=== PATIENT | female | born 1970 | race American Indian/Alaskan Native ===

== ENCOUNTER 2021-07-08 17:53 | Emergency (ER) | payer MEDICARE ==
[2021-07-08 18:13] VITALS: BP 95/51
--- NOTE | 2021-07-09 01:35 | Emergency Department Report ---
ED Rash HPI - HPI Chief Complaint: Skin Rash Stated Complaint: DEHYDRATED Time Seen by Provider: 07/09/21 00:17 Duration: 5 Days Location: Neck, Back, Abdomen, Upper Extremities Rash Symptoms: Yes Itching Severity: mild, moderate Other History: 50-year-old female is relocated to a rooming house presents emerged department complaining of new onset pruritic rash to her upper body since moving into the location. Reports no fever, chills, sweats. No wheezes. No nausea vomiting ED Review of Systems ROS: Stated complaint: DEHYDRATED Other details as noted in HPI Comment: All other systems reviewed and negative ED Past Medical Hx - Medications Home Medications: Home Medications Medication Instructions Recorded Confirmed Last Taken Type Permethrin 5% [Acticin 5% CREAM] 1 applicatio TP ONCE #1 tube 07/09/21 Unknown Rx Rash Exam - Exam General: Vital signs noted. No distress. Alert and acting appropriately. HEENT: No Periorbital Edema, No Conjuctival Injection, No Chemosis, No Perioral Edema, No Tongue Edema, No Uvular Edema, No Compromised Airway, No Drooling Lungs: Yes Good Air Exchange (Normal Breath Sounds), No Wheezes, No Ronchi, No Stridor, No Cough, No Labored Respirations, No Retractions, No Use of Accessory Muscles, No Other Abnormal Lung Sounds Heart: Yes Regular, No Murmur Skin: Yes Erythema (Mite bites in various areas on the arms torso and neck with local erythema. No lymphangitis.), No Bulla(e), No Excoriations, No Weeping Other: Positive: Abdomen Normal, Neurologic Normal, Musculoskeletal Normal ED Course Vital Signs 07/08/21 18:10 Temperature 98.1 F Pulse Rate 82 Respiratory 16 Rate Blood Pressure 95/51 [Left] O2 Sat by Pulse 99 Oximetry ED Medical Decision Making - Medical Decision Making 50-year-old female to emerge department status post rash development after moving into a new living quarters suggestive of bedbugs. Advised patient of the need to fumigate her new living quarters and she can utilize Benadryl and Clarinex [id number] to help with the itching as well as hydrocortisone cream Critical care attestation.: If time is entered above; I have spent that time in minutes in the direct care of this critically ill patient, excluding procedure time. ED Disposition Clinical Impression: Infestation, mites Disposition: HOME / SELF CARE / HOMELESS Is pt being admited?: No Does the pt Need Aspirin: No Condition: Stable Instructions: Scabies, Adult, Bedbugs Prescriptions: Permethrin 5% [Acticin 5% CREAM] 1 applicatio TP ONCE #1 tube Referrals: PAULA PARMAR MD [Primary Care Provider] - 3-5 Days
== END 2021-07-09 02:49 | disposition home or self-care (01) ==
LOC: ED 17:53
DX: B88.9 Infestation, unspecified (principal)
CPT/HCPCS: 99282

== ENCOUNTER 2021-07-09 08:49 | Emergency (ER) | payer MEDICARE ==
[2021-07-09] MEDS ORDERED: ALUM-MAG HYDROXIDE-SIMETHICONE 200-200-20MG/5ML ORAL LIQD 30 ML PO ONE (09:51)
[2021-07-09] MEDS ORDERED: LIDOCAINE VISCOUS 2% 15 ML ORAL LIQD PO ONE (09:51)
--- NOTE | 2021-07-09 09:51 | Emergency Department Report ---
ED Abdominal Pain HPI - General Chief Complaint: Abdominal Pain Stated Complaint: ABD PAIN/PAIN VOMITING/THROAT Time Seen by Provider: 07/09/21 09:49 Source: patient Mode of arrival: Ambulatory Limitations: No Limitations - History of Present Illness Initial Comments: This is a 50-year-old female presents the emergency department with a chief complaint of abdominal pain. Patient was seen in the ER last night due to a rash and appears to be homeless and is sleeping in the waiting room and then woke up when she was told she needed to leave this morning and states she is having some abdominal pain. She states she has been having pain for the past f ew days went to another doctor and was told she needed IV fluids and a CAT scan due to having ketones in her urine. She reports the pain is epigastric and reports some associated dyspepsia and sore throat. She denies any associated fever, chills, night sweats, headache, dizziness or blurry vision, chest pain or shortness of breath, weakness or any other associated symptoms. Severity scale (0 -10): 5 - Related Data Previous Rx's Medication Instructions Recorded Last Taken Type Dicyclomine [Bentyl] 20 mg PO QID #20 tablet 07/09/21 Unknown Rx Omeprazole 20 mg PO QDAY #30 07/09/21 Unknown Rx Permethrin 5% [Acticin 5% CREAM] 1 applicatio TP ONCE #1 tube 07/09/21 Unknown Rx Sucralfate [Carafate] 1 gm PO ACHS #90 tablet 07/09/21 Unknown Rx Allergies Allergy/AdvReac Type Severity Reaction Status Date / Time No Known Allergies Allergy Verified 07/08/21 18:10 ED Review of Systems ROS: Stated complaint: ABD PAIN/PAIN VOMITING/THROAT Other details as noted in HPI Comment: All other systems reviewed and negative Constitutional: denies: chills, fever Eyes: denies: eye pain, eye discharge, vision change ENT: denies: ear pain, throat pain Respiratory: denies: cough, shortness of breath, wheezing Cardiovascular: denies: chest pain, palpitations Endocrine: no symptoms reported Gastrointestinal: abdominal pain, nausea. denies: diarrhea Genitourinary: denies: urgency, dysuria, discharge Musculoskeletal: denies: back pain, joint swelling, arthralgia Skin: denies: rash, lesions Neurological: denies: headache, weakness, paresthesias Psychiatric: denies: anxiety, depression Hematological/Lymphatic: denies: easy bleeding, easy bruising ED Past Medical Hx - Surgical History Past Surgical History?: No - Medications Home Medications: Home Medications Medication Instructions Recorded Confirmed Last Taken Type Dicyclomine [Bentyl] 20 mg PO QID #20 tablet 07/09/21 Unknown Rx Omeprazole 20 mg PO QDAY #30 07/09/21 Unknown Rx Permethrin 5% [Acticin 5% CREAM] 1 applicatio TP ONCE #1 tube 07/09/21 Unknown Rx Sucralfate [Carafate] 1 gm PO ACHS #90 tablet 07/09/21 Unknown Rx ED Physical Exam - General Limitations: No Limitations General appearance: alert, in no apparent distress - Head Head exam: Present: atraumatic, normocephalic - Eye Eye exam: Present: normal appearance, PERRL, EOMI Pupils: Present: normal accommodation - ENT ENT exam: Present: normal exam, normal orophraynx, mucous membranes moist - Neck Neck exam: Present: normal inspection, full ROM. Absent: tenderness, meningismus - Respiratory Respiratory exam: Present: normal lung sounds bilaterally. Absent: respiratory distress, wheezes, rales, rhonchi, stridor - Cardiovascular Cardiovascular Exam: Present: regular rate, normal rhythm, normal heart sounds. Absent: systolic murmur, diastolic murmur, rubs, gallop - GI/Abdominal GI/Abdominal exam: Present: soft, tenderness (Mild generalized tenderness palpation, abdomen soft, no guarding or rigidity. No rebound), normal bowel sounds. Absent: distended, guarding, rebound, rigid - Extremities Exam Extremities exam: Present: normal inspection, full ROM, normal capillary refill. Absent: tenderness, calf tenderness - Back Exam Back exam: Present: normal inspection, full ROM. Absent: tenderness, CVA tenderness (R), CVA tenderness (L) - Neurological Exam Neurological exam: Present: alert, oriented X3, normal gait - Psychiatric Psychiatric exam: Present: normal affect, normal mood - Skin Skin exam: Present: warm, dry, intact, normal color. Absent: rash ED Course Vital Signs 07/09/21 09:03 Temperature 97.4 F L Pulse Rate 70 Respiratory 18 Rate Blood Pressure 101/65 [Right] O2 Sat by Pulse 100 Oximetry - Reevaluation(s) Reevaluation #1: 07/09/21 12:05 Work-up including CBC, CMP, lipase, urinalysis was all unremarkable. Patient had relief with GI cocktail. We will send the patient home with omeprazole, Carafate, Bentyl and outpatient follow-up with primary care doctor. Recommend she return the emerge department any worsening symptoms. Verbalized understand the diagnosis, treatment and follow-up instructions and all her questions were answered. ED Medical Decision Making - Lab Data Result diagrams: 07/09/21 10:40 07/09/21 10:40 Lab Results 07/09/21 07/09/21 07/09/21 Range/Units 10:08 10:40 10:40 WBC 5.3 (4.5-11.0) K/mm3 RBC 4.10 (3.65-5.03) M/mm3 Hgb 11.2 (10.1-14.3) gm/dl Hct 33.5 (30.3-42.9) % MCV 82 (79-97) fl MCH 27 L (28-32) pg MCHC 33 (30-34) % RDW 13.5 (13.2-15.2) % Plt Count 295 (140-440) K/mm3 Lymph % (Auto) 46.2 H (13.4-35.0) % [place] % (Auto) 9.2 H (0.0-7.3) % Eos % (Auto) 2.4 (0.0-4.3) % Baso % (Auto) 0.3 (0.0-1.8) % Lymph # (Auto) 2.4 (1.2-5.4) K/mm3 [place] # (Auto) 0.5 (0.0-0.8) K/mm3 Eos # (Auto) 0.1 (0.0-0.4) K/mm3 Baso # (Auto) 0.0 (0.0-0.1) K/mm3 Seg Neutrophils % 41.9 (40.0-70.0) % Seg Neutrophils # 2.2 (1.8-7.7) K/mm3 Sodium 139 (137-145) mmol/L Potassium 4.0 (3.6-5.0) mmol/L Chloride 102.0 (98-107) mmol/L Carbon Dioxide 23 (22-30) mmol/L Anion Gap 18 mmol/L BUN 13 (7-17) mg/dL Creatinine 0.7 (0.6-1.2) mg/dL Estimated GFR > 60 ml/min BUN/Creatinine Ratio 19 % Glucose 97 (65-100) mg/dL Calcium 9.1 (8.4-10.2) mg/dL Total Bilirubin 0.70 (0.1-1.2) mg/dL AST 23 (5-40) units/L ALT 15 (7-56) units/L Alkaline Phosphatase 64 (35-129) units/L Total Protein 7.4 (6.3-8.2) g/dL Albumin 4.8 (3.9-5) g/dL Albumin/Globulin Ratio 1.8 % Lipase 35 (13-60) units/L Urine Color Yellow (Yellow) Urine Turbidity Slightly-cloudy (Clear) Urine pH 5.0 (5.0-7.0) Ur Specific [place] 1.026 (1.003-1.030) Urine Protein <15 mg/dl (Negative) mg/dL Urine Glucose (UA) Neg (Negative) mg/dL Urine Ketones Tr (Negative) mg/dL Urine Blood Sm (Negative) Urine Nitrite Neg (Negative) Urine Bilirubin Neg (Negative) Urine Urobilinogen 2.0 (<2.0) mg/dL Ur Leukocyte Esterase Sm (Negative) Urine WBC (Auto) 4.0 (0.0-6.0) /HPF Urine RBC (Auto) 2.0 (0.0-6.0) /HPF U Epithel Cells (Auto) 14.0 H (0-13.0) /HPF Urine Bacteria (Auto) 1+ (Negative) /HPF Calcium Oxalate Crystal 2+ Urine Mucus 2+ /HPF - Medical Decision Making Work-up including CBC, CMP, lipase, urinalysis was all unremarkable. Patient had relief with GI cocktail. We will send the patient home with omeprazole, Carafate, Bentyl and outpatient follow-up with primary care doctor. Recommend she return the emerge department any worsening symptoms. Verbalized understand the diagnosis, treatment and follow-up instructions and all her questions were answered. - Differential Diagnosis Gastritis, GERD, cholecystitis, pancreatitis Critical care attestation.: If time is entered above; I have spent that time in minutes in the direct care of this critically ill patient, excluding procedure time. ED Disposition Clinical Impression: Nonspecific abdominal pain Disposition: HOME / SELF CARE / HOMELESS Is pt being admited?: No Condition: Stable Instructions: Abdominal Pain (ED), Abdominal Pain, Adult Prescriptions: Dicyclomine [Bentyl] 20 mg PO QID #20 tablet Sucralfate [Carafate] 1 gm PO ACHS #90 tablet Omeprazole 20 mg PO QDAY #30 Referrals: PAULA PARMAR MD [Primary Care Provider] - 3-5 Days Time of Disposition: 12:05
[2021-07-09 10:54] LABS: Basophils % (Auto) 0.3 % (0.0-1.8); Eosinophils # (Auto) 0.1 K/mm3 (0.0-0.4); Eosinophils % (Auto) 2.4 % (0.0-4.3); Hematocrit 33.5 % (30.3-42.9); Hemoglobin 11.2 gm/dl (10.1-14.3); Lymphocytes # (Auto) 2.4 K/mm3 (1.2-5.4); Lymphocytes % (Auto) 46.2 % (13.4-35.0); Mean Corpuscular HGB Conc 33 % (30-34); Mean Corpuscular Volume 82 fl (79-97); Monocytes # (Auto) 0.5 K/mm3 (0.0-0.8); Monocytes % (Auto) 9.2 % (0.0-7.3); Platelet Count 295 K/mm3 (140-440); Red Cell Distribution Width 13.5 % (13.2-15.2)
[2021-07-09 11:08] LABS: Alanine Aminotransferase 15 units/L (7-56); Albumin 4.8 g/dL (3.9-5); Blood Urea Nitrogen 13 mg/dL (7-17); Calcium 9.1 mg/dL (8.4-10.2); Hemolysis Index 26
[2021-07-09 11:09] LABS: BUN/Creatinine Ratio 19
[2021-07-09 11:17] LABS: Bacteria,Urine 1+ /HPF (Negative); Bilirubin,Urine NEG (Negative); Blood,Urine SM (Negative); Calcium Oxalate Crystals,Urine 2+; Color,Urine Yellow (Yellow); Mucus,Urine 2+ /HPF; Protein,Urine <15 mg/dL mg/dL (Negative)
[2021-07-09 12:32] VITALS: BP 108/42
== END 2021-07-09 12:33 | disposition home or self-care (01) ==
LOC: ED 08:49
DX: R10.9 Unspecified abdominal pain (principal)
CPT/HCPCS: 36415; 80053; 81001; 83690; 85025; 99283

== ENCOUNTER 2021-11-10 21:07 | Emergency (ER) | payer MEDICARE ==
--- NOTE | 2021-11-11 05:47 | Emergency Department Report ---
ED General Adult HPI - General Chief complaint: Psych Stated complaint: MH PUI?: No Time Seen by Provider: 11/11/21 05:43 Source: patient Mode of arrival: Ambulatory Limitations: No Limitations - History of Present Illness Initial comments: This is a 50-year-old female who denies medical history came in today stating that her family wants her to be evaluated and get medication because she is having outburst. During my evaluation patient stated that she has been saved by his Shala etc. that God is talking to her to do stuff. When asked as were the cause telling her to do she just rambling on. Patient herself denies any suicidal ideation or homicidal ideation. Patient denies any visual or tactile hallucination. Patient denies any other symptoms. - Related Data Previous Rx's Medication Instructions Recorded Last Taken Type Dicyclomine [Bentyl] 20 mg PO QID #20 tablet 07/09/21 Unknown Rx Omeprazole 20 mg PO QDAY #30 07/09/21 Unknown Rx Permethrin 5% [Acticin 5% CREAM] 1 applicatio TP ONCE #1 tube 07/09/21 Unknown Rx Sucralfate [Carafate] 1 gm PO ACHS #90 tablet 07/09/21 Unknown Rx Allergies Allergy/AdvReac Type Severity Reaction Status Date / Time No Known Allergies Allergy Verified 07/08/21 18:10 ED Review of Systems ROS: Stated complaint: MH Other details as noted in HPI Comment: All other systems reviewed and negative Constitutional: no symptoms reported, see HPI Eyes: as per HPI ENT: as per HPI Respiratory: no symptoms reported, see HPI Cardiovascular: as per HPI Endocrine: no symptoms reported, see HPI Gastrointestinal: as per HPI Genitourinary: as per HPI Musculoskeletal: as per HPI Skin: as per HPI Neurological: as per HPI Psychiatric: as per HPI Hematological/Lymphatic: as per HPI ED Past Medical Hx - Past Medical History Previous Medical History?: Yes Hx Psychiatric Treatment: Yes (schizophrenia) - Surgical History Past Surgical History?: No - Social History Smoking Status: Never Smoker Substance Use Type: None - Medications Home Medications: Home Medications Medication Instructions Recorded Confirmed Last Taken Type Dicyclomine [Bentyl] 20 mg PO QID #20 tablet 07/09/21 Unknown Rx Omeprazole 20 mg PO QDAY #30 07/09/21 Unknown Rx Permethrin 5% [Acticin 5% CREAM] 1 applicatio TP ONCE #1 tube 07/09/21 Unknown Rx Sucralfate [Carafate] 1 gm PO ACHS #90 tablet 07/09/21 Unknown Rx ED Physical Exam - General Limitations: No Limitations General appearance: alert, in no apparent distress - Head Head exam: Present: atraumatic, normocephalic, normal inspection - Eye Eye exam: Present: normal appearance, PERRL, EOMI Pupils: Present: normal accommodation - ENT ENT exam: Present: normal exam, mucous membranes dry - Neck Neck exam: Present: normal inspection - Respiratory Respiratory exam: Present: normal lung sounds bilaterally - Cardiovascular Cardiovascular Exam: Present: regular rate, normal rhythm, normal heart sounds - GI/Abdominal GI/Abdominal exam: Present: soft - Extremities Exam Extremities exam: Present: normal inspection, full ROM - Back Exam Back exam: Present: normal inspection, full ROM - Neurological Exam Neurological exam: Present: alert, oriented X3, CN II-XII intact - Psychiatric Psychiatric exam: Absent: depressed, agitated, anxious, flat affect, manic, homicidal ideation, suicidal ideation - Skin Skin exam: Present: normal color ED Course Vital Signs 11/10/21 11/10/21 21:18 21:58 Temperature 98.5 F Pulse Rate 92 H Respiratory 18 18 Rate Blood Pressure 94/61 O2 Sat by Pulse 98 99 Oximetry Critical care attestation.: If time is entered above; I have spent that time in minutes in the direct care of this critically ill patient, excluding procedure time. ED Disposition Condition: Stable Referrals: PAULA PARMAR MD [Primary Care Provider] - 3-5 Days
[2021-11-11 06:08] LABS: Hematocrit 36.1 % (30.3-42.9); Hemoglobin 11.3 gm/dl (10.1-14.3); Mean Corpuscular HGB Conc 31 % (30-34); Mean Corpuscular Volume 82 fl (79-97); Platelet Count 283 K/mm3 (140-440); Red Blood Count 4.41 M/mm3 (3.65-5.03); Red Cell Distribution Width 13.8 % (13.2-15.2)
[2021-11-11 06:28] LABS: Alanine Aminotransferase 12 units/L (7-56); Albumin 4.4 g/dL (3.9-5); BUN/Creatinine Ratio 18; Blood Urea Nitrogen 14 mg/dL (7-17); Calcium 9.7 mg/dL (8.4-10.2); Hemolysis Index 4
[2021-11-11 06:52] LABS: Bacteria,Urine 1+ /HPF (Negative); Mucus,Urine 1+ /HPF
[2021-11-11 06:53] LABS: Amphetamine Screen,Urine Negative; Benzodiazepines Screen,Urine Negative; Bilirubin,Urine Negative (Negative); Blood,Urine Moderate (Negative); Cannabinoid Screen,Urine Negative; Cocaine Screen,Urine Negative; Color,Urine Yellow (Yellow); Methadone Screen,Urine Negative; Opiate Screen,Urine Negative
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
--- NOTE | 2021-11-11 13:58 | Event Note ---
Date: 11/11/21 Patient reevaluated and is currently in no acute distress. [address]
[2021-11-11] MEDS ORDERED: traZODone 50 MG TAB PO SCH (22:00)
--- NOTE | 2021-11-12 09:17 | Progress Note ---
Subjective - Reason for Consult Consult date: 11/12/21 Reason for consult: delusional - Chief Complaint Chief complaint: The patient was seen today. She is calm, cooperative and polite. She endorses feeling better. She presents much better today than yesterday. The patient is lucid and conversational. She says she slept well. She says she works at [employer] and is supposed to be back at work today. The patient denies SI/HI or hallucinations of any kind. I mention to her the synagogue obsessions she was having yesterday. The patient laughs and says "oh no, I'm not feeling like that any more." I discussed with the patient the importance of taking her meds and complying with her medical regimen. The patient no longer meets criteria for acute psychiatric inpatient treatment. REVIEW OF SYSTEMS Constitutional: Negative for weight loss ENT: Negative for stridor Respiratory: Negative for cough or hemoptysis All other systems reviewed and are negative MENTAL STATUS EXAMINATION General Appearance and Behavior: Age appropriate, good hygiene, wearing appropriate clothes, good eye contact, calm, cooperative Cooperation: Participating/engaged Psychomotor Behavior: Psychomotor normal Mood: better Affect and affective range: congruent with stated mood Thought Process: goal directed Thought Content: none Speech: normal tone and pace Suicidal Ideation: Denies Homicidal Ideation: Denies Hallucinations: Denies Delusions: None elicited Impulse Control: Limited Insight and Judgment: Limited insight and judgment Memory: Limited Attention: attentive Orientation: Alert, oriented Diagnoses: Schizophrenia Treatment Plan d/c 1013 Olanzapine 7.5mg po daily Trazodone 50mg po qhs PSYCHOTHERAPY: Supportive psychotherapy provided MEDICAL: Per primary team DELIRIUM PRECAUTIONS: Please re-orient patient frequently, keep lights on during the day, and minimize benzodiazepines and opiates as these medications could worsen patient's confusion. HEALTH INSURANCE ADJUSTER: Per medical team DISPOSITION: Do not Recommend acute psychiatric inpatient treatment. The patient understands that if SI/HI arise he is to seek immediate assistance. Will sign off. Thank you for the consult. Case staffed with Dr. Rodriguez Mental Status Exam - Vital signs Last Vital Signs Temp 98.6 F 11/12/21 02:52 Pulse 74 11/12/21 02:52 Resp 16 11/12/21 02:52 BP 96/62 11/12/21 02:52 Pulse Ox 98 11/12/21 02:52
[2021-11-12 10:26] VITALS: BP 102/59
--- NOTE | 2021-11-12 13:41 | Event Note ---
Date: 11/12/21 Pt's chart and ED course reviewed. Pt assessed by me. She is calm, cooperative. She does not appear to be acutely psychotic, nor does she appear to manifest any evidence of responding to internal stimuli. Vitals are stable. Patient seen and evaluated by mental health provider. Patient stable for discharge to home. Prior to discharge she was given outpatient psychiatric referrals by the mental health provider on file. Prior to discharge the patient was given strict verbal and written return precautions. She verbalized understanding are in the plan of care.
[2021-11-12] MEDS ORDERED: SULFAMETHOXAZOLE/TRIMETHOPRIM 800/160MG DS TAB PO ONE (13:42)
== END 2021-11-12 13:58 | disposition home or self-care (01) ==
LOC: ED 21:07
DX: Z13.30 Encounter for screening examination for mental health and behavioral disorders, unspecified (principal); F20.9 Schizophrenia, unspecified
CPT/HCPCS: 36415; 80053; 80307; 80320; 81001; 83735; 84443; 85027; 87086; 99284; G0480